=== PATIENT | female | born 1955 | race Caucasian/White ===

== ENCOUNTER 2018-07-16 17:45 | Emergency (ER) | payer MEDICAID ==
[~2018-07-16] VITALS: Ht 160 cm; Wt 68.0 kg
[2018-07-16 18:50] LABS: Basophils # (auto) 0.1 uL; Basophils % (auto) 2.6 % (0.0-2.0); Eosinophils # (auto) 0 uL; Eosinophils % (auto) 0.9 % (0.0-7.0); Hematocrit 41.1 % (36.0-46.0); Hemoglobin 13.9 g/dL (12.2-16.2); Lymphocytes # (auto) 1.5 uL; Lymphocytes % (auto) 33.1 % (10.0-50.0); Mean Corpuscular Hemoglobin 31.3 pg (28.0-32.0); Mean Corpuscular Hgb Conc. 33.8 g/dL (32.0-36.0); Mean Corpuscular Volume 92.7 fL (80.0-100.0); Monocytes # (auto) 0.3 uL; Monocytes % (auto) 6.7 % (0.0-12.0); Neutrophils # (auto) 2.5 uL; Neutrophils % (auto) 56.7 % (37.0-80.0); Nucleated Red Blood Cells % 0.1 %; Platelet Count (auto) 304 10^3/uL (140-450); Red Blood Cells 4.44 10^6/uL (4.0-5.20); Red Cell Distribution Width 16.7 % (11.8-14.3); White Blood Cell 4.4 10^3/uL (4.4-10.8)
[2018-07-16 18:54] LABS: Albumin 3.9 g/dL (3.4-5.0); Calcium 8.2 mg/dL (8.5-10.1); Potassium 3.8 mmol/L (3.5-5.1)
[2018-07-16 18:56] LABS: Salicylate < 1.7 mg/dL (2.8-20.0)
[2018-07-16 18:57] LABS: Acetaminophen < 2.0 ug/mL (10-30)
[2018-07-16 18:59] LABS: BUN/Creatinine Ratio 12.8; Bilirubin, Total 0.4 mg/dL (0.2-1.0); Total Protein 7.6 g/dL (6.4-8.2)
[2018-07-16] MEDS ORDERED: THIAMINE 100mg/ml INJ (200mg/2ml VIAL) IV ONE (19:15)
[2018-07-16] MEDS ORDERED: LORazepam 2MG/ML-1ML VIAL IV ONE (19:15)
[2018-07-16] MEDS ORDERED: LORazepam 2MG/ML-1ML VIAL ONE (19:16)
[2018-07-16] MEDS ORDERED: SODIUM CHLORIDE 0.9% 1,000 ML IV ONE (23:30)
[2018-07-17] MEDS ORDERED: SODIUM CHLORIDE 0.9% 3,000 ML IV ONE (02:00)
[2018-07-17] MEDS ORDERED: LORazepam 2MG/ML-1ML VIAL IV ONE ×3 (02:30→09:45)
[2018-07-17 07:57] LABS: Urine Bacteria MOD /hpf (None Seen); Urine Blood 1+ /uL (Negative); Urine Hyaline Cast FEW /lpf (0 - 2); Urine Mucus FEW (None Seen); Urine Specific Gravity 1.014 (1.001-1.035); Urine WBC 3 /hpf (0 - 5)
[2018-07-17 08:08] LABS: Amphetamine Screen, Urine NEGATIVE (NEGATIVE); Barbiturate Scree,Urine NEGATIVE (NEGATIVE); Benzodiazephine Screen, Urine NEGATIVE (NEGATIVE); Cannabinoid Screen, Urine NEGATIVE (NEGATIVE); Cocaine Screen, Urine NEGATIVE (NEGATIVE); Opiate Scree,Urine NEGATIVE (NEGATIVE); Phencyclidine Screen, Urine NEGATIVE (NEGATIVE)
[2018-07-17] MEDS ORDERED: chlordiazePOXIDE HCL 5 MG CAP PO ONE (09:45)
[2018-07-17] MEDS ORDERED: NAPROXEN 500 MG TAB PO ONE (15:00)
[2018-07-17] MEDS: LORazepam 0.5 MG TAB PO SCH ×2 (17:49→22:00)
[2018-07-17] MEDS ORDERED: PHENAZOPYRIDINE HCL 100 MG TAB PO ONE (18:45)
[2018-07-17] MEDS ORDERED: LORazepam 2MG/ML-1ML VIAL IM ONE (18:45)
[2018-07-17] MEDS ORDERED: ONDANSETRON ODT 4 MG TAB PO ONE (18:45)
[2018-07-18] MEDS: LORazepam 0.5 MG TAB PO SCH ×3 (02:00→16:45)
[2018-07-18] MEDS ORDERED: LORazepam 0.5 MG TAB PO ONE (10:00)
[2018-07-18] MEDS ORDERED: LORazepam 0.5 MG TAB PO PRN (10:00)
[2018-07-18] MEDS ORDERED: ACETAMINOPHEN 325 MG TAB PO PRN (12:30)
[2018-07-18] MEDS ORDERED: LOSARTAN POTASSIUM 50 MG TAB PO ONE (16:15)
[2018-07-18] MEDS ORDERED: HCTZ 25 MG TAB PO ONE (16:15)
[2018-07-18 17:05] VITALS: BP 164/93
[2018-07-18] MEDS ORDERED: ACETAMINOPHEN 500 MG TAB PO PRN (18:00)
== END 2018-07-18 17:17 | disposition short-term general hospital (02) ==
LOC: ER 17:58
DX: F29 Unspecified psychosis not due to a substance or known physiological condition (principal); G92 Toxic encephalopathy; F10.920 Alcohol use, unspecified with intoxication, uncomplicated; F41.9 Anxiety disorder, unspecified; I10 Essential (primary) hypertension; Y90.8 Blood alcohol level of 240 mg/100 ml or more
CPT/HCPCS: 36415; 71045; 80053; 80307; 80320; 80329; 81001; 85025; 93005; 94761; 96372; 96374; 96375; 96376; 99285; J2060; J3411; J7030; Q0162

== ENCOUNTER 2019-04-28 10:20 | Inpatient (IN) | payer MEDICAID, OTHER ==
[~2019-04-28] VITALS: Ht 154.9 cm; Wt 64.3 kg
[2019-04-28] MEDS ORDERED: SODIUM CHLORIDE 0.9% 1,000 ML IVB ONE (10:30)
[2019-04-28 11:16] LABS: Basophils # (auto) 0 10 ^3/uL (0-0.2); Basophils % (auto) 0.4 % (0.0-2.0); Eosinophils # (auto) 0 10 ^3/uL (0-0.8); Eosinophils % (auto) 0.1 % (0.0-7.0); Hematocrit 41.1 % (36.0-46.0); Lymphocytes # (auto) 1.1 10 ^3/uL (0.4-5.4); Mean Corpuscular Volume 88.1 fL (80.0-100.0); Monocytes # (auto) 0.5 10 ^3/uL (0-1.3); Monocytes % (auto) 4.1 % (0.0-12.0); Neutrophils # (auto) 9.3 10 ^3/uL (1.6-8.6); Neutrophils % (auto) 85.4 % (37.0-80.0); Platelet Count (auto) 370 10^3/uL (140-450); Red Blood Cells 4.67 10^6/uL (4.0-5.20); Red Cell Distribution Width 14.6 % (11.8-14.3); White Blood Cell 10.9 10^3/uL (4.4-10.8)
[2019-04-28] MEDS ORDERED: THIAMINE 100mg/ml INJ (200mg/2ml VIAL) IV ONE ×2 (11:30→16:15)
[2019-04-28 11:40] LABS: Albumin 3.9 g/dL (3.4-5.0); Calcium 8.6 mg/dL (8.5-10.1); Potassium 4.2 mmol/L (3.5-5.1)
[2019-04-28 11:44] LABS: BUN/Creatinine Ratio 20.4; Bilirubin, Total 1.1 mg/dL (0.2-1.0); Total Protein 7.6 g/dL (6.4-8.2)
[2019-04-28] MEDS ORDERED: chlordiazePOXIDE HCL 5 MG CAP PO ONE (12:00)
[2019-04-28 12:37] LABS: Urine WBC None Seen /hpf (0 - 5)
[2019-04-28 12:53] LABS: Urine Bacteria FEW /hpf (None Seen); Urine Blood 2+ /uL (Negative); Urine Hyaline Cast FEW /lpf (0 - 2); Urine Specific Gravity 1.011 (1.001-1.035)
[2019-04-28] MEDS: SODIUM CHLORIDE 0.9% 1,000 ML IV SCH ×3 (12:54→19:25)
[2019-04-28] MEDS ORDERED: PANTOPRAZOLE 40 MG/10 ML VIAL INJ IV ONE (13:00)
[2019-04-28 13:02] LABS: Amphetamine Screen, Urine NEGATIVE (NEGATIVE); Barbiturate Scree,Urine NEGATIVE (NEGATIVE); Benzodiazephine Screen, Urine NEGATIVE (NEGATIVE); Cannabinoid Screen, Urine NEGATIVE (NEGATIVE); Cocaine Screen, Urine NEGATIVE (NEGATIVE); Opiate Scree,Urine NEGATIVE (NEGATIVE); Phencyclidine Screen, Urine NEGATIVE (NEGATIVE)
[2019-04-28] MEDS ORDERED: LORazepam 2MG/ML-1ML VIAL IV ONE ×2 (13:30→16:45)
[2019-04-28] MEDS ORDERED: PANTOPRAZOLE 40mg/50ML NS AE 50 ML IV ONE (14:30)
[2019-04-28] MEDS ORDERED: NITROGLYCERIN 0.4 MG SL TAB SL PRN (16:15)
[2019-04-28] MEDS ORDERED: chlordiazePOXIDE HCL 25 MG CAP PO PRN (16:15)
[2019-04-28] MEDS ORDERED: PROMETHAZINE HCL 25 MG/ML 1ML IV PRN (16:15)
[2019-04-28] MEDS ORDERED: MORPHINE SULF INJ 2 MG/ML SYRINGE 1ML IV PRN (16:15)
[2019-04-28] MEDS ORDERED: LABETALOL HCL 5 MG/ML ML 20ML VIAL IV PRN (16:15)
--- NOTE | 2019-04-28 18:00 | NUR ---
Patient transferred to room 251A, via rney.
--- NOTE | 2019-04-28 18:20 | NUR ---
Opening Shift Note Assumed care of patient. No S/S of distress/SOB or pain. Instructed on POC and to call for assist PRN, will continue to monitor for changes Q1hr and PRN.
[2019-04-28 19:03] LABS: Hemoglobin 12.1 g/dL (12.2-16.2)
[2019-04-28 19:17] LABS: Amylase 35 U/L (25-115); Lipase 246 U/L (73-393)
[2019-04-28] MEDS: chlordiazePOXIDE HCL 25 MG CAP PO SCH ×2 (19:27→23:46)
--- NOTE | 2019-04-28 20:00 | NUR ---
Opening Shift Note Assumed care of patient, awake and alert. No S/S of distress/SOB or pain. Instructed on POC and to call for assist PRN, will continue to monitor for changes Q1hr and PRN.
[2019-04-28] MEDS: MORPHINE SULF INJ 2 MG/ML SYRINGE 1ML IV PRN (20:55)
--- NOTE | 2019-04-28 20:56 | NUR ---
PATIENT COMPLAINING OF PAIN 9/10 FROM BACK. PATIENT STATES THEY HAD A SPINAL FUSION AND HAS CHRONIC BACK PAIN. PATIENT GIVEN PAIN MEDICINE ACCORDING TO PAIN SCALE. PATIENT VERBALIZED UNDERSTANDING. WILL CONTINUE TO MONITOR.
--- NOTE | 2019-04-28 21:59 | NUR ---
HOSPITALIST PAGED PATIENT STATING SEVERE ANXIETY. PATIENT HAS LIBRIUM ORDERED BUT PATIENT STATES THAT LIBRIUM DOESN'T HELP. PATIENT IS ALSO NPO. PATIENT STATES THAT ATIVAN WAS GIVEN IN ER AND HELPED. WILL AWAIT CALL BACK OR ORDERS.
[2019-04-28 22:02] VITALS: BP 134/75
[2019-04-28] MEDS ORDERED: LORazepam 2MG/ML-1ML VIAL IV PRN (22:15)
[2019-04-29] MEDS: SODIUM CHLORIDE 0.9% 1,000 ML IV SCH ×7 (00:01→22:41)
[2019-04-29 01:31] LABS: Hematocrit 33.3 % (36.0-46.0); Hemoglobin 11.1 g/dL (12.2-16.2)
[2019-04-29 05:49] VITALS: BP 158/80
[2019-04-29] MEDS: chlordiazePOXIDE HCL 25 MG CAP PO SCH ×3 (05:54→17:39)
--- NOTE | 2019-04-29 06:02 | NUR ---
PATIENT STATED PAIN 10/10 WENT INTO PATIENT'S ROOM AND FOUND PATIENT SLEEPING SOUNDLY. PATIENT SHOWING NO FACIAL GRIMACING OR ANY OTHER SIGNS OF PAIN. WILL CONTINUE TO MONITOR.
[2019-04-29 06:28] LABS: Basophils # (auto) 0.1 10 ^3/uL (0-0.2); Basophils % (auto) 1.2 % (0.0-2.0); Eosinophils # (auto) 0.1 10 ^3/uL (0-0.8); Eosinophils % (auto) 0.8 % (0.0-7.0); Hematocrit 32.3 % (36.0-46.0); Hemoglobin 11.2 g/dL (12.2-16.2); Lymphocytes # (auto) 1.3 10 ^3/uL (0.4-5.4); Lymphocytes % (auto) 14.3 % (10.0-50.0); Mean Corpuscular Hemoglobin 30.7 pg (28.0-32.0); Mean Corpuscular Hgb Conc. 34.6 g/dL (32.0-36.0); Mean Corpuscular Volume 88.9 fL (80.0-100.0); Monocytes # (auto) 0.5 10 ^3/uL (0-1.3); Neutrophils # (auto) 6.8 10 ^3/uL (1.6-8.6); Neutrophils % (auto) 77.7 % (37.0-80.0); Platelet Count (auto) 205 10^3/uL (140-450); Red Blood Cells 3.63 10^6/uL (4.0-5.20); Red Cell Distribution Width 14.5 % (11.8-14.3); White Blood Cell 8.8 10^3/uL (4.4-10.8)
[2019-04-29 06:44] LABS: Albumin 3.1 g/dL (3.4-5.0)
[2019-04-29 06:47] LABS: BUN/Creatinine Ratio 19.6; Bilirubin, Total 1.3 mg/dL (0.2-1.0); Total Protein 6.1 g/dL (6.4-8.2)
[2019-04-29] MEDS ORDERED: LIDOCAINE VISCOUS 2% 15ML UD ONE (08:31)
[2019-04-29] MEDS ORDERED: SODIUM CHLORIDE LOCK 10 ML ONE (08:31)
[2019-04-29 09:00] VITALS: BP 151/66
[2019-04-29 09:30] LABS: INR 1.12 (0.9-1.15); Partial Thromboplastin Time 26.7 sec (23.64-32.05)
[2019-04-29] MEDS: THIAMINE 100mg/ml INJ (200mg/2ml VIAL) IV SCH (09:59)
[2019-04-29] MEDS: MORPHINE SULF INJ 2 MG/ML SYRINGE 1ML IV PRN ×2 (10:11→17:39)
[2019-04-29] MEDS ORDERED: PANTOPRAZOLE 40 MG/10 ML VIAL INJ IV SCH (11:15)
[2019-04-29] MEDS: MIDAZOLAM HCL 5 MG/ML-1ML VIAL ONE ×4 (11:47→14:51)
[2019-04-29 13:00] VITALS: BP 163/79
--- NOTE | 2019-04-29 13:45 | NUR ---
LOOSE BM PT HAD 2 EPISODES OF LOOSE BM. PT INFORMED THAT A STOOL SAMPLE WILL BE COLLECTED AND TO LET US KNOW WHEN SHE HAVE ANOTHER BM. PT VERBALIZED UNDERSTANDING.
--- NOTE | 2019-04-29 13:45 | NUR ---
SKIN ASSESSMENT PT STARTED COMPLAINING OF SORENESS AFTER BM AND WHEN WIPING. REDNESS NOTED BETWEEN THE BUTTOCKS. ZGUARD APPLIED. PT VERBALIZED IMMEDIATE RELIEF.
--- NOTE | 2019-04-29 14:30 | NUR ---
PT TAKEN TO OR VIA BED. AWAKE,AOX4. NO DISTRESS NOTED. VERBALIZED COMFORT.
[2019-04-29] MEDS: fentaNYL CITRATE 100 MCG/2 ML VL ONE ×2 (14:45→14:47)
[2019-04-29] MEDS: diphenhdrAMINE HCL 50 MG/1 ML VL ONE ×2 (14:50→14:51)
[2019-04-29 17:00] VITALS: BP 156/71
[2019-04-29] MEDS: SUCRALFATE 1 GM/10 ML ORAL SUSP PO SCH ×2 (17:38→22:39)
--- NOTE | 2019-04-29 19:33 | NUR ---
SOCIAL SERVICE CONSULT PUT IN PLACE. PER PATIENT, SHE'S RENTING A ROOM AND IS NOT SURE IF SHE STILL HAVE A HOME TO GO BACK TO OR IF SHE WILL BE SLEEPING IN HER CAR AFTER HER DISCHARGE.
--- NOTE | 2019-04-29 19:34 | NUR ---
CLOSING REPORT GIVEN TO BRADFORD RN. PT RESTING IN BED, WATCHING TV. VERBALIZED COMFORT. PT ABLE TO TOLERATE HER FULL LIQUID DIET AND DENIES VOMITING. PT HASN'T HAD ANY MORE EPISODE OF DIARRHEA. BRADFORD RN IS AWARE THAT SHE NEEDS TO COLLECT A STOOL SAMPLE IF PT HAVE ANOTHER DIARRHEA DURING HER SHIFT, TO TEST FOR CDIFF.
[2019-04-29 20:00] VITALS: BP 156/79
[2019-04-29] MEDS ORDERED: MORPHINE SULF INJ 2 MG/ML SYRINGE 1ML IV PRN ×2 (20:45)
[2019-04-29] MEDS: HYDROcodone-ACET 5/325MG TAB PO PRN (21:17)
[2019-04-29] MEDS: PANTOPRAZOLE 40 MG/10 ML VIAL INJ IV SCH (22:38)
[2019-04-29 22:53] VITALS: BP 156/79
[2019-04-30] MEDS: chlordiazePOXIDE HCL 25 MG CAP PO SCH ×4 (00:04→17:19)
[2019-04-30] MEDS: HYDROcodone-ACET 5/325MG TAB PO PRN ×5 (01:22→20:00)
[2019-04-30 05:45] VITALS: BP 146/72
[2019-04-30] MEDS: SUCRALFATE 1 GM/10 ML ORAL SUSP PO SCH ×4 (07:03→21:41)
[2019-04-30 07:15] LABS: Basophils # (auto) 0 10 ^3/uL (0-0.2); Basophils % (auto) 0.7 % (0.0-2.0); Eosinophils # (auto) 0.1 10 ^3/uL (0-0.8); Eosinophils % (auto) 1.9 % (0.0-7.0); Hematocrit 30.1 % (36.0-46.0); Hemoglobin 10.3 g/dL (12.2-16.2); Lymphocytes # (auto) 1.4 10 ^3/uL (0.4-5.4); Lymphocytes % (auto) 27.6 % (10.0-50.0); Mean Corpuscular Hemoglobin 30.6 pg (28.0-32.0); Mean Corpuscular Hgb Conc. 34.3 g/dL (32.0-36.0); Mean Corpuscular Volume 89.1 fL (80.0-100.0); Monocytes # (auto) 0.3 10 ^3/uL (0-1.3); Monocytes % (auto) 5.2 % (0.0-12.0); Neutrophils # (auto) 3.4 10 ^3/uL (1.6-8.6); Neutrophils % (auto) 64.6 % (37.0-80.0); Platelet Count (auto) 154 10^3/uL (140-450); Red Blood Cells 3.38 10^6/uL (4.0-5.20); Red Cell Distribution Width 14.7 % (11.8-14.3); White Blood Cell 5.2 10^3/uL (4.4-10.8)
--- NOTE | 2019-04-30 07:20 | NUR ---
Opening Shift Note Received report from Analisa LYON. Assumed care of patient, awake and alert. No S/S of distress/SOB or pain. NO episode of diarrhea. Instructed on POC and to call for assist PRN, will continue to monitor for changes Q1hr and PRN.
[2019-04-30 07:34] LABS: Calcium 7.9 mg/dL (8.5-10.1); Magnesium 1.9 mg/dL (1.6-2.6); Potassium 3.3 mmol/L (3.5-5.1)
[2019-04-30 07:36] LABS: BUN/Creatinine Ratio 16.5
[2019-04-30 08:00] VITALS: BP 148/79
--- NOTE | 2019-04-30 08:04 | NUR ---
PAIN REASSESSMENT PATIENT VERBALIZED REDUCED PAIN, SHOWS MORE ANXIETY THAN PAIN NOW. RECEIVED REPORT FROM NIGHT NURSE NOT TO GIVE ATIVAN. LIBRIUM IS SCHEDULED AND PRN, PATIENT VERBALIZED UNDERSTANDING.
[2019-04-30 09:00] VITALS: BP 148/79
--- NOTE | 2019-04-30 09:35 | NUR ---
Dr Osborn at bedside.
[2019-04-30] MEDS ORDERED: POTASSIUM CHL 20 Meq TABLET PO ONE (09:45)
--- NOTE | 2019-04-30 10:00 | NUR ---
RECEIVED VERBAL ORDER FROM DR LOUIS TO ADVANCE DIET OF THE PATIENT.
[2019-04-30] MEDS: THIAMINE 100mg/ml INJ (200mg/2ml VIAL) IV SCH (10:08)
[2019-04-30] MEDS: PANTOPRAZOLE 40 MG/10 ML VIAL INJ IV SCH ×2 (10:08→21:41)
[2019-04-30] MEDS: SODIUM CHLORIDE 0.9% 1,000 ML IV SCH ×2 (10:13→17:27)
--- NOTE | 2019-04-30 11:07 | NUR ---
PATIENT REQUESTING PAIN MEDICINE DUE TO HER SCIATICA. GAVE NORCO PO ORDERED BY MD. POSITIONED PATIENT COMFORTABLY.
--- NOTE | 2019-04-30 12:07 | NUR ---
PATIENT IS AT MRI.
--- NOTE | 2019-04-30 12:15 | NUR ---
PATIENT VERBALIZED PAIN IS STILL THE SAME BUT SHE CAN MANAGE.
[2019-04-30 13:00] VITALS: BP 153/77
--- NOTE | 2019-04-30 13:14 | NUR ---
ORDERED CDIFF PROTOCOL, INFORMED
--- NOTE | 2019-04-30 13:30 | NUR ---
STOOL SAMPLE SENT TO LAB FOR OCCULT BLOOD AND CDIFF WITH CDIFF FORM. COPY OF CDIFF FORM PLACED IN CHART.
--- NOTE | 2019-04-30 15:10 | NUR ---
PATIENT COMPLAINED OF BACK PAIN, GAVE NORCO 5/325MG PO ORDERED BY MD. POSITIONED COMFORTABLY.
--- NOTE | 2019-04-30 15:15 | NUR ---
PATIENT IS VERY ANXIOUS, TALKS TOO MUCH AND SAYING THAT SHE IS VERY UPSET BECAUSE WE DO NOT GIVE HER ANY MEDS FOR HER ANXIETY. INFORMED DR LOUIS, RECEIVED TELEPHONE ORDER, SEE ORDERS.
[2019-04-30] MEDS: ALPRAZolam 0.25 MG TAB PO PRN (16:04)
--- NOTE | 2019-04-30 16:10 | NUR ---
PATIENT REPORTED REDUCED PAIN, APPEARS MORE ANXIOUS THAN IN PAIN.
[2019-04-30 17:00] VITALS: BP 156/80
[2019-04-30] MEDS: MORPHINE SULF INJ 2 MG/ML SYRINGE 1ML IV PRN ×2 (17:27→21:42)
--- NOTE | 2019-04-30 17:28 | NUR ---
PATIENT IS COMPLAINING OF TOO MUCH PAIN IN HER BACK, GAVE MORPHINE 2MG IV PRN ORDERED BY MD. POSITIONED COMFORTABLY.
--- NOTE | 2019-04-30 17:57 | NUR ---
PAIN PATIENT VERBALIZED GREAT RELIEF FROM PAIN. WILL CONTINUE CARE.
--- NOTE | 2019-04-30 19:40 | NUR ---
Opening Shift Note Assumed care of patient, awake and alert. No S/S of distress/SOB. Fall and safety precautions in place. Call light within reach and able to use. Instructed on POC and to call for assist PRN, patient verbalized understanding and in agreement. Will continue to monitor for changes Q1hr and PRN.
--- NOTE | 2019-04-30 20:00 | NUR ---
PAIN ASSESSMENT PATIENT COMPLAINS OF 10/10 PAIN USING ADULT SCALE: ACUTE ABDOMINAL PAIN AND CHRONIC LOWER BACK PAIN. PATIENT REQUESTS NORCO AT THIS TIME (SEE EMAR FOR ADMINISTRATION). WILL CONTINUE TO MONITOR.
--- NOTE | 2019-04-30 21:40 | NUR ---
PAIN ASSESSMENT PATIENT COMPLAINS OF ACUTE ABDOMINAL PAIN AND CHRONIC LOWER BACK PAIN RATED 10/10 USING ADULT PAIN SCALE. PATIENT REQUESTS MORPHINE AT THIS TIME (SEE EMAR FOR ADMINISTRATION). BLOOD PRESSURE 151/72 MM HG; HEART RATE 78 BPM; RESPIRATIONS EVEN AND UNLABORED. WILL CONTINUE TO MONITOR.
[2019-04-30 22:00] VITALS: BP 151/72
--- NOTE | 2019-04-30 22:40 | NUR ---
PAIN REASSESSMENT PATIENT REPORTS PAIN 0/10 USING ADULT SCALE. PATIENT RESTING IN BED. BED LOCKED IN LOWEST POSITION WITH SIDE RAILS UP X2. WILL CONTINUE TO MONITOR.
--- NOTE | 2019-05-01 00:20 | NUR ---
PATIENT REQUESTS PRN PATIENT REQUESTS XANAX AT THIS TIME (SEE EMAR FOR ADMINISTRATION). PATIENT EDUCATED ON RISKS/BENEFITS/SIDE EFFECTS, PATIENT VERBALIZED UNDERSTANDING AND IN AGREEMENT FOR ADMINISTRATION. WILL CONTINUE TO MONITOR.
[2019-05-01] MEDS: chlordiazePOXIDE HCL 25 MG CAP PO SCH ×5 (00:35→23:37)
[2019-05-01] MEDS: ALPRAZolam 0.25 MG TAB PO PRN ×2 (00:35→16:55)
[2019-05-01] MEDS: SODIUM CHLORIDE 0.9% 1,000 ML IV SCH ×4 (00:35→23:37)
[2019-05-01 05:00] VITALS: BP 137/69
[2019-05-01] MEDS: MORPHINE SULF INJ 2 MG/ML SYRINGE 1ML IV PRN ×4 (05:39→18:43)
[2019-05-01] MEDS: SUCRALFATE 1 GM/10 ML ORAL SUSP PO SCH ×4 (06:02→22:04)
--- NOTE | 2019-05-01 07:20 | NUR ---
Opening Shift Note Received report from Yancy LYON. Assumed care of patient, awake and alert. No S/S of distress/SOB. Reported manageable pain. Instructed on POC and to call for assist PRN, will continue to monitor for changes Q1hr and PRN.
[2019-05-01 07:28] LABS: Basophils # (auto) 0 10 ^3/uL (0-0.2); Basophils % (auto) 1.1 % (0.0-2.0); Eosinophils # (auto) 0.2 10 ^3/uL (0-0.8); Eosinophils % (auto) 3.8 % (0.0-7.0); Hematocrit 28.8 % (36.0-46.0); Lymphocytes # (auto) 1.3 10 ^3/uL (0.4-5.4); Lymphocytes % (auto) 33.2 % (10.0-50.0); Mean Corpuscular Hemoglobin 30.8 pg (28.0-32.0); Mean Corpuscular Hgb Conc. 34.8 g/dL (32.0-36.0); Mean Corpuscular Volume 88.6 fL (80.0-100.0); Monocytes # (auto) 0.2 10 ^3/uL (0-1.3); Monocytes % (auto) 5.9 % (0.0-12.0); Neutrophils # (auto) 2.2 10 ^3/uL (1.6-8.6); Nucleated Red Blood Cells % 0.2 %; Platelet Count (auto) 135 10^3/uL (140-450); Red Blood Cells 3.25 10^6/uL (4.0-5.20); Red Cell Distribution Width 14.8 % (11.8-14.3)
[2019-05-01 07:52] LABS: Potassium 3.4 mmol/L (3.5-5.1)
[2019-05-01 07:57] LABS: Calcium 7.8 mg/dL (8.5-10.1); Magnesium 1.7 mg/dL (1.6-2.6)
[2019-05-01 08:00] VITALS: BP 155/75
[2019-05-01 09:00] VITALS: BP 155/75
--- NOTE | 2019-05-01 10:00 | NUR ---
NOTED PATIENT UNCONSCIOUSLY REMOVED IV WHEN SLEEPING.
--- NOTE | 2019-05-01 10:12 | NUR ---
IV insertion IV access obtained, via clean sterile technique by inserting gauge catheter 22 at left forearm after 1 attempt. IV secured properly. No trauma to site. Patient tolerated well.
[2019-05-01] MEDS: THIAMINE 100mg/ml INJ (200mg/2ml VIAL) IV SCH (10:15)
[2019-05-01] MEDS: PANTOPRAZOLE 40 MG/10 ML VIAL INJ IV SCH ×2 (10:15→22:03)
--- NOTE | 2019-05-01 10:46 | NUR ---
PAIN ASSESSMENT PATIENT REALLY SEEKING FOR NARCOTICS. SAID THAT PAIN IS BACKING UP AGAIN. NOTED LAUGHING AND WATCHING TV WHILE SAYING SHE IS IN PAIN 10/10.
--- NOTE | 2019-05-01 11:00 | NUR ---
PATIENT SEEN WALKING ASSISTED BY PHYSICAL THERAPISTS.
[2019-05-01] MEDS: HYDROcodone-ACET 5/325MG TAB PO PRN ×3 (11:31→19:49)
--- NOTE | 2019-05-01 11:31 | NUR ---
PATIENT COMPLAINING OF PAIN, GAVE NORCO 5/235MG PO PRN ORDERED BY MD. POSITIONED COMFORTABLY. WILL CONTINUE TO MONITOR.
--- NOTE | 2019-05-01 12:25 | NUR ---
INFORMED DR. LOUIS THAT PATIENT IS ALWAYS ASKING FOR BOTH PAIN RELIEVERS NOW: NORCO AND MORPHINE.
--- NOTE | 2019-05-01 12:31 | NUR ---
PATIENT REPORTED RELIEF FROM PAIN. POSITIONED COMFORTABLY. Dr Osborn at bedside.
[2019-05-01 12:52] VITALS: BP 147/76
--- NOTE | 2019-05-01 14:33 | NUR ---
PATIENT IS ASKING FOR MORPHINE FOR HER PAIN IN THE BACK. GAVE MEDICINE PRN ORDERED BY MD. POSITIONED COMFORTABLY.
--- NOTE | 2019-05-01 15:03 | NUR ---
PAIN ASSESSMENT PATIENT IS SLEEPING AT THIS TIME.
--- NOTE | 2019-05-01 15:33 | NUR ---
NORCO PATIENT JUST WOKE UP AND CALLED FOR PAIN RELIEVER, SAID SHE'S IN PAIN WITH SEVERITY SCALE OF 10/10. NORCO PO PRN GIVEN ORDERED BY .
--- NOTE | 2019-05-01 16:33 | NUR ---
PATIENT REPORTED REDUCED PAIN, SMILING AND SEEN WALKING AT [facility].
[2019-05-01 17:00] VITALS: BP 137/64
--- NOTE | 2019-05-01 17:20 | NUR ---
RECEIVED A CALL FROM [employer], PATIENT IS POSITIVE FOR CDIFF. INFORMED CN BRITTNI.
--- NOTE | 2019-05-01 17:25 | NUR ---
CALLED DR LOUIS REGARDING PATIENT POSITIVE FOR CDIFF, RECEIVED NEW TELEPHONE ORDERS, SEE ORDERS.
[2019-05-01] MEDS: VANCOMYCIN HCL 125MG/5ML ORAL SOL PO SCH ×2 (17:57→23:37)
--- NOTE | 2019-05-01 18:43 | NUR ---
PAIN PATIENT REQUESTED FOR PAIN RELIEVER SAYING THAT HER BACK PAIN DOES NOT GO AWAY. GAVE MORPHINE 2MG IV PRN ORDERED BY MD, POSITIONED COMFORTABLY.
[2019-05-01 22:00] VITALS: BP 141/74
--- NOTE | 2019-05-01 22:04 | NUR ---
CALLED ON-CALL DOCTOR FOR [facility] SPOKE TO DR HOFFMAN. UPDATED MD ON PATIENT STATUS AND COMPLAINT OF LACK OF SLEEP REQUESTING MEDICATION. BLOOD PRESSURE 141/74; HEART RATE 80BPM. NEW ORDER RECEIVED (SEE ORDERS), WILL CARRY OUT. WILL CONTINUE TO MONITOR.
[2019-05-01] MEDS ORDERED: ZOLPIDEM TARTRATE 5 MG TAB PO ONE (23:00)
[2019-05-02 05:00] VITALS: BP 166/82
[2019-05-02] MEDS: VANCOMYCIN HCL 125MG/5ML ORAL SOL PO SCH (05:32)
[2019-05-02] MEDS: chlordiazePOXIDE HCL 25 MG CAP PO SCH (05:33)
[2019-05-02] MEDS: HYDROcodone-ACET 5/325MG TAB PO PRN (05:33)
[2019-05-02] MEDS: SUCRALFATE 1 GM/10 ML ORAL SUSP PO SCH (06:11)
[2019-05-02] MEDS: SODIUM CHLORIDE 0.9% 1,000 ML IV SCH (07:02)
--- NOTE | 2019-05-02 07:30 | NUR ---
Opening Shift Note Assumed care of patient, resting with eyes closed, awoken by name. No S/S of distress/SOB, no pain noted or reported. Updated on POC and instructed to call for assistance as needed, patient verbalized understanding. Bed locked in lowest position, side rails up x3, call light within reach. Will continue to monitor for changes Q1hr and PRN.
[2019-05-02 09:00] VITALS: BP_SYST 138; BP_SYST 149; BP_DIAS 65; BP_DIAS 75
[2019-05-02] MEDS: THIAMINE 100mg/ml INJ (200mg/2ml VIAL) IV SCH (10:00)
[2019-05-02] MEDS: PANTOPRAZOLE 40 MG/10 ML VIAL INJ IV SCH ×2 (10:00→10:12)
--- NOTE | 2019-05-02 10:30 | NUR ---
Patient eloped. THERESA ORTIZ states they want to leave the hospital Against Medical Advice (AMA). Patient removed IV and tele monitor prior to leaving. Patient encouraged to stay for further treatment/stabilization. Irena DE LEON notified of patient's wishes. Patient advised of the risks and benefits of leaving AMA. Patient verbalized understanding. Patient encouraged to return to the ER if symptoms do not improve or worsen. Informed patient that would return with AMA form to sign, when primary RN returned patient ankushd, unable to obtain AMA signature. .
--- NOTE | 2019-05-02 12:29 | NUR ---
PER MD LOUIS, ATTEMPTED TO CONTACT PATIENT VIA TELEPHONE TO MAKE AWARE OF ISOLATION PRECAUTIONS. PHONE NUMBER IS NO LONGER IN SERVICE. ALSO THERE IS NO NEXT OF KIN CONTACT PHONE NUMBER AVAILABLE. PRESCRIPTION MEDS CALLED IN TO [facility].
--- NOTE | 2019-05-02 12:45 | NUR ---
assessment re: consult for living arrangement Patient left the hospital per RN without her paperwork and prior to being assessed. Addendum: 05/02/19 at 1556 by Giselle OBRIEN Amended: Links added.
== END 2019-05-02 10:30 | disposition left against medical advice (07) | DRG 241 ==
LOC: EDUNIT# 10:20 → ER 10:20 → TELE-EAST 10:21
PROVIDERS: ADMIT Internal Medicine; ATTEND Internal Medicine
PROC: 0DB88ZX Excision of Small Intestine, Via Natural or Artificial Opening Endoscopic, Diagnostic (ICD-10-PCS; 2019-04-29)
PROC: 0DB68ZX Excision of Stomach, Via Natural or Artificial Opening Endoscopic, Diagnostic (ICD-10-PCS; principal; 2019-04-29 14:38)
DX: K25.4 Chronic or unspecified gastric ulcer with hemorrhage (principal); E87.2 Acidosis; K76.6 Portal hypertension; A04.72 Enterocolitis due to Clostridium difficile, not specified as recurrent; F11.20 Opioid dependence, uncomplicated; E86.0 Dehydration; F10.920 Alcohol use, unspecified with intoxication, uncomplicated; N39.0 Urinary tract infection, site not specified; I10 Essential (primary) hypertension; M54.9 Dorsalgia, unspecified; G89.29 Other chronic pain; F41.9 Anxiety disorder, unspecified; K44.9 Diaphragmatic hernia without obstruction or gangrene; K31.9 Disease of stomach and duodenum, unspecified; Z98.1 Arthrodesis status; Z81.1 Family history of alcohol abuse and dependence; Z71.41 Alcohol abuse counseling and surveillance of alcoholic; Z79.899 Other long term (current) drug therapy
CPT/HCPCS: 36415; 43239; 71045; 80048; 80053; 80307; 80320; 81001; 82150; 83690; 83735; 85014; 85018; 85025; 85045; 85610; 85730; 87493; 96361; 96374; 96375; 97163; C9113; G0378; J2250

== ENCOUNTER → 2019-05-16 | Emergency (ER) | payer MEDICAID ==
[~2019-05-16] VITALS: Ht 157.5 cm; Wt 54.4 kg
[~2019-05-16] MED LIST: FOLIC ACID 1 MG, MULTIPLE VITAMIN 10 ML, MAGNESIUM SULF SDV 50% 8 MEQ, THIAMINE INJ 100... INJ SCH; LORazepam 2MG/ML-1ML VIAL IM ONE; LORazepam 2MG/ML-1ML VIAL IV ONE; POTASSIUM CHL 20 Meq TABLET PO ONE; SODIUM CHLORIDE 0.9% 1,000 ML IV ONE
[2019-05-16 16:11] LABS: Basophils # (auto) 0.1 10 ^3/uL (0-0.2); Basophils % (auto) 0.6 % (0.0-2.0); Eosinophils # (auto) 0 10 ^3/uL (0-0.8); Eosinophils % (auto) 0.2 % (0.0-7.0); Hematocrit 39.6 % (36.0-46.0); Hemoglobin 13.2 g/dL (12.2-16.2); Lymphocytes # (auto) 2.1 10 ^3/uL (0.4-5.4); Lymphocytes % (auto) 21.6 % (10.0-50.0); Mean Corpuscular Hemoglobin 29.7 pg (28.0-32.0); Mean Corpuscular Hgb Conc. 33.4 g/dL (32.0-36.0); Monocytes # (auto) 0.5 10 ^3/uL (0-1.3); Monocytes % (auto) 4.9 % (0.0-12.0); Neutrophils # (auto) 7.2 10 ^3/uL (1.6-8.6); Neutrophils % (auto) 72.7 % (37.0-80.0); Nucleated Red Blood Cells % 0.1 %; Platelet Count (auto) 394 10^3/uL (140-450); Red Blood Cells 4.45 10^6/uL (4.0-5.20); Red Cell Distribution Width 15.8 % (11.8-14.3); White Blood Cell 9.9 10^3/uL (4.4-10.8)
[2019-05-16 16:29] LABS: Albumin 3.9 g/dL (3.4-5.0); BUN/Creatinine Ratio 8.3; Calcium 8.4 mg/dL (8.5-10.1)
[2019-05-16 16:32] LABS: Bilirubin, Total 0.7 mg/dL (0.2-1.0); Total Protein 7.9 g/dL (6.4-8.2)
[2019-05-17 01:08] LABS: Urine Bacteria FEW /hpf (None Seen); Urine Blood Negative /uL (Negative); Urine Hyaline Cast MOD /lpf (0 - 2); Urine Mucus FEW (None Seen); Urine Specific Gravity 1.022 (1.001-1.035); Urine WBC 2 /hpf (0 - 5)
[2019-05-17 01:10] LABS: Amphetamine Screen, Urine NEGATIVE (NEGATIVE); Barbiturate Scree,Urine NEGATIVE (NEGATIVE); Benzodiazephine Screen, Urine POSITIVE (NEGATIVE); Cannabinoid Screen, Urine NEGATIVE (NEGATIVE); Cocaine Screen, Urine NEGATIVE (NEGATIVE); Phencyclidine Screen, Urine NEGATIVE (NEGATIVE)
[2019-05-17 01:18] LABS: Opiate Scree,Urine POSITIVE (NEGATIVE)
[2019-05-17 02:30] VITALS: BP 160/90
== END | disposition home or self-care (01) ==
LOC: ER 15:40
DX: F10.129 Alcohol abuse with intoxication, unspecified (principal); I10 Essential (primary) hypertension; Y90.9 Presence of alcohol in blood, level not specified
CPT/HCPCS: 36415; 80053; 80307; 80320; 81001; 85025; 96365; 96375; 99284; J2060; J3411; J3475; J7030

== ENCOUNTER → 2019-05-17 | Emergency (ER) | payer MEDICAID ==
[~2019-05-17] VITALS: Ht 160 cm; Wt 81.6 kg
[~2019-05-17] MED LIST changes: +CITA-30 PO; -FOLIC ACID 1 MG, MULTIPLE VITAMIN 10 ML, MAGNESIUM SULF SDV 50% 8 MEQ, THIAMINE INJ 100... INJ SCH; +HYDR-531 PO; +LISI-646 PO; +LORazepam 0.5 MG TAB PO ONE; -LORazepam 2MG/ML-1ML VIAL IM ONE; +ONDANSETRON HCL 4 MG/2 ML VIAL IV ONE; -POTASSIUM CHL 20 Meq TABLET PO ONE; +THIAMINE INJ 100 MG in SODIUM CHLORIDE 0.9% 1,000 ML IV ONE
[2019-05-17 21:21] LABS: Basophils # (auto) 0.1 10 ^3/uL (0-0.2); Basophils % (auto) 0.9 % (0.0-2.0); Eosinophils # (auto) 0 10 ^3/uL (0-0.8); Eosinophils % (auto) 0.5 % (0.0-7.0); Hematocrit 33.8 % (36.0-46.0); Hemoglobin 11.3 g/dL (12.2-16.2); Lymphocytes # (auto) 1.8 10 ^3/uL (0.4-5.4); Mean Corpuscular Hgb Conc. 33.5 g/dL (32.0-36.0); Mean Corpuscular Volume 89.5 fL (80.0-100.0); Monocytes # (auto) 0.6 10 ^3/uL (0-1.3); Monocytes % (auto) 7.4 % (0.0-12.0); Neutrophils % (auto) 67.2 % (37.0-80.0); Platelet Count (auto) 261 10^3/uL (140-450); Red Blood Cells 3.78 10^6/uL (4.0-5.20); Red Cell Distribution Width 15.8 % (11.8-14.3); White Blood Cell 7.4 10^3/uL (4.4-10.8)
[2019-05-17 21:55] LABS: Albumin 3.6 g/dL (3.4-5.0); Calcium 7.4 mg/dL (8.5-10.1); Potassium 3.4 mmol/L (3.5-5.1)
[2019-05-17 21:58] LABS: BUN/Creatinine Ratio 5.6; Bilirubin, Total 0.6 mg/dL (0.2-1.0); Total Protein 6.6 g/dL (6.4-8.2)
[2019-05-17 22:57] LABS: Amphetamine Screen, Urine NEGATIVE (NEGATIVE); Barbiturate Scree,Urine NEGATIVE (NEGATIVE); Benzodiazephine Screen, Urine POSITIVE (NEGATIVE); Cannabinoid Screen, Urine NEGATIVE (NEGATIVE); Cocaine Screen, Urine NEGATIVE (NEGATIVE); Opiate Scree,Urine NEGATIVE (NEGATIVE); Phencyclidine Screen, Urine NEGATIVE (NEGATIVE)
[2019-05-18] MEDS: THIAMINE 100mg/ml INJ (200mg/2ml VIAL) ONE ×2 (04:07→04:22)
[2019-05-18 06:45] VITALS: BP 155/75
== END | disposition home or self-care (01) ==
LOC: EDUNIT# 19:26 → EDBD 19:39 → ER 19:39
DX: S16.1XXA Strain of muscle, fascia and tendon at neck level, initial encounter (principal); F10.129 Alcohol abuse with intoxication, unspecified; I10 Essential (primary) hypertension; E11.9 Type 2 diabetes mellitus without complications; V89.2XXA Person injured in unspecified motor-vehicle accident, traffic, initial encounter; Y93.89 Activity, other specified; Y92.89 Other specified places as the place of occurrence of the external cause; Y99.8 Other external cause status; Y90.9 Presence of alcohol in blood, level not specified
CPT/HCPCS: 36415; 72125; 80053; 80307; 80320; 85025; 96365; 96375; 96376; 99284; J2060

== ENCOUNTER 2019-05-18 08:11 | Emergency (ER) | payer MEDICAID ==
[~2019-05-18] VITALS: Ht 152.4 cm; Wt 61.2 kg
[2019-05-18 08:25] VITALS: BP 195/87
[2019-05-18] MEDS ORDERED: LOPERAMIDE HCL 2 MG CAP PO ONE (08:45)
[2019-05-19] MEDS ORDERED: LISI-646 PO (10:02)
[2019-05-19] MEDS ORDERED: CITA-30 PO (10:02)
[2019-05-19] MEDS ORDERED: HYDR-531 PO (10:02)
== END 2019-05-18 09:03 | disposition home or self-care (01) ==
LOC: ER 08:11
DX: R19.7 Diarrhea, unspecified (principal); I10 Essential (primary) hypertension; F17.210 Nicotine dependence, cigarettes, uncomplicated; Z76.0 Encounter for issue of repeat prescription

== ENCOUNTER 2019-05-18 13:21 | Emergency (ER) | payer MEDICAID ==
[~2019-05-18] VITALS: Ht 157.5 cm; Wt 72.6 kg
[2019-05-18 13:30] VITALS: BP 121/72
[2019-05-18] MEDS ORDERED: SODIUM CHLORIDE 0.9% 1,000 ML IVB ONE (14:58)
[2019-05-19] MEDS ORDERED: CITA-30 PO (10:02)
[2019-05-19] MEDS ORDERED: HYDR-531 PO (10:02)
[2019-05-19] MEDS ORDERED: LISI-646 PO (10:02)
== END 2019-05-18 16:39 | disposition left against medical advice (07) ==
LOC: ER 13:21 → EDBD 13:21 → ER 16:39
DX: F10.10 Alcohol abuse, uncomplicated (principal); Z53.21 Procedure and treatment not carried out due to patient leaving prior to being seen by health care provider
CPT/HCPCS: 36415; 80320

== ENCOUNTER 2019-05-18 17:35 | Inpatient (IN) | payer MEDICAID ==
[~2019-05-18] VITALS: Ht 152.4 cm; Wt 72.6 kg
[2019-05-18] MEDS ORDERED: HALOPERIDOL LACTATE 5 MG/ML INJ VIAL ONE (17:38)
[2019-05-18] MEDS ORDERED: HALOPERIDOL LACTATE 5 MG/ML INJ VIAL IM ONE (17:45)
[2019-05-18] MEDS ORDERED: SODIUM CHLORIDE 0.9% 1,000 ML IV ONE (18:15)
[2019-05-18] MEDS ORDERED: THIAMINE INJ 100 MG in SODIUM CHLORIDE 0.9% 1,000 ML IV ONE (18:15)
[2019-05-18 18:55] LABS: Basophils # (auto) 0.1 10 ^3/uL (0-0.2); Basophils % (auto) 1.4 % (0.0-2.0); Eosinophils # (auto) 0.1 10 ^3/uL (0-0.8); Eosinophils % (auto) 1.2 % (0.0-7.0); Hematocrit 34.2 % (36.0-46.0); Hemoglobin 11.6 g/dL (12.2-16.2); Lymphocytes # (auto) 1.5 10 ^3/uL (0.4-5.4); Lymphocytes % (auto) 29.7 % (10.0-50.0); Mean Corpuscular Hemoglobin 30.1 pg (28.0-32.0); Mean Corpuscular Hgb Conc. 33.8 g/dL (32.0-36.0); Mean Corpuscular Volume 89.2 fL (80.0-100.0); Monocytes # (auto) 0.3 10 ^3/uL (0-1.3); Monocytes % (auto) 6.3 % (0.0-12.0); Neutrophils # (auto) 3.2 10 ^3/uL (1.6-8.6); Neutrophils % (auto) 61.4 % (37.0-80.0); Nucleated Red Blood Cells % 0.1 %; Platelet Count (auto) 220 10^3/uL (140-450); Red Blood Cells 3.84 10^6/uL (4.0-5.20); Red Cell Distribution Width 15.8 % (11.8-14.3); White Blood Cell 5.2 10^3/uL (4.4-10.8)
[2019-05-18] MEDS ORDERED: diphenhdrAMINE HCL 50 MG/1 ML VL IV ONE ×3 (19:00→21:45)
[2019-05-18 19:09] LABS: Albumin 3.3 g/dL (3.4-5.0); Calcium 7.8 mg/dL (8.5-10.1); Potassium 3.3 mmol/L (3.5-5.1)
[2019-05-18 19:12] LABS: Bilirubin, Total 0.6 mg/dL (0.2-1.0); Total Protein 6.6 g/dL (6.4-8.2)
[2019-05-18 19:22] LABS: Urine Bacteria NONE SEEN /hpf (None Seen); Urine Blood TRACE /uL (Negative); Urine Mucus FEW (None Seen); Urine Specific Gravity 1.004 (1.001-1.035); Urine WBC 1 /hpf (0 - 5)
[2019-05-18 19:38] LABS: Amphetamine Screen, Urine NEGATIVE (NEGATIVE); Barbiturate Scree,Urine NEGATIVE (NEGATIVE); Benzodiazephine Screen, Urine POSITIVE (NEGATIVE); Cannabinoid Screen, Urine NEGATIVE (NEGATIVE); Cocaine Screen, Urine NEGATIVE (NEGATIVE); Opiate Scree,Urine NEGATIVE (NEGATIVE); Phencyclidine Screen, Urine NEGATIVE (NEGATIVE)
[2019-05-18] MEDS ORDERED: PROMETHAZINE HCL 25 MG/ML 1ML IV ONE (21:45)
[2019-05-18] MEDS ORDERED: LORazepam 2MG/ML-1ML VIAL IV ONE (23:00)
[2019-05-19] MEDS ORDERED: SODIUM CHLORIDE 0.9% 1,000 ML IV ONE (00:45)
[2019-05-19] MEDS ORDERED: LORazepam 2MG/ML-1ML VIAL IV ONE (00:45)
[2019-05-19] MEDS ORDERED: chlordiazePOXIDE HCL 25 MG CAP PO PRN (06:45)
[2019-05-19] MEDS ORDERED: TEMAZEPAM 15 MG CAP PO PRN (06:45)
[2019-05-19] MEDS ORDERED: ONDANSETRON HCL 4 MG/2 ML VIAL IV PRN (06:45)
[2019-05-19 08:49] VITALS: BP 129/86
[2019-05-19] MEDS ORDERED: FAMOTIDINE 20 MG TAB PO SCH (10:00)
[2019-05-19] MEDS ORDERED: FOLIC ACID 1 MG TAB PO SCH (10:00)
[2019-05-19] MEDS ORDERED: LISINOPRIL 20 MG TAB PO SCH (10:00)
[2019-05-19] MEDS ORDERED: CITA-30 PO (10:02)
[2019-05-19] MEDS ORDERED: HYDR-531 PO (10:02)
[2019-05-19] MEDS ORDERED: LISI-646 PO (10:02)
[2019-05-19] MEDS ORDERED: FOLIC ACID 1 MG, MULTIPLE VITAMIN 10 ML, MAGNESIUM SULF SDV 50% 8 MEQ, THIAMINE INJ 100... INJ SCH ×5 (12:00)
[2019-05-19] MEDS ORDERED: chlordiazePOXIDE HCL 25 MG CAP PO SCH (16:00)
== END 2019-05-19 15:50 | disposition left against medical advice (07) | DRG 770 ==
LOC: ER 17:35 → TELE 17:36 → TELE-CENTR 05-19 10:52
PROVIDERS: ADMIT Nurse Practitioner; ATTEND Internal Medicine Nephrology
DX: F10.121 Alcohol abuse with intoxication delirium (principal); F11.20 Opioid dependence, uncomplicated; F13.20 Sedative, hypnotic or anxiolytic dependence, uncomplicated; R62.7 Adult failure to thrive; Z53.29 Procedure and treatment not carried out because of patient's decision for other reasons; Y90.9 Presence of alcohol in blood, level not specified; F41.9 Anxiety disorder, unspecified; Z68.31 Body mass index [BMI] 31.0-31.9, adult; E66.9 Obesity, unspecified
CPT/HCPCS: 36415; 70450; 80053; 80307; 80320; 80329; 81001; 83735; 85025; 96365; 96367; 96375; 96376; G0378; J2405

== ENCOUNTER → 2019-05-18 | Emergency (ER) | payer MEDICAID ==
[~2019-05-18] VITALS: Ht 160 cm; Wt 72.6 kg
[~2019-05-18] MED LIST changes: -LORazepam 0.5 MG TAB PO ONE; -LORazepam 2MG/ML-1ML VIAL IV ONE; -ONDANSETRON HCL 4 MG/2 ML VIAL IV ONE; -SODIUM CHLORIDE 0.9% 1,000 ML IV ONE; -THIAMINE INJ 100 MG in SODIUM CHLORIDE 0.9% 1,000 ML IV ONE
[2019-05-18 12:22] VITALS: BP 123/69
== END | disposition left against medical advice (07) ==
LOC: EDUNIT# 11:59 → EDBD 12:11 → ER 12:11
DX: F10.10 Alcohol abuse, uncomplicated (principal); Z53.21 Procedure and treatment not carried out due to patient leaving prior to being seen by health care provider

== ENCOUNTER → 2019-05-19 | Emergency (ER) | payer MEDICAID ==
[~2019-05-19] VITALS: Ht 154.9 cm; Wt 59.0 kg
[~2019-05-19] MED LIST changes: +DIPHENOXYLATE W/ATROPINE 2.5 MG TAB PO ONE; +HYDROcodone-ACET 10/325MG TAB PO ONE; +POTASSIUM EFFERVESENT TAB 25 MEQ PO ONE; +SODIUM CHLORIDE 0.9% 1,000 ML IV ONE; +THIAMINE 100mg/ml INJ (200mg/2ml VIAL) IV ONE; +cefTRIAXone SOD 1,000 MG VL IM ONE; +cloNIDine HCL 0.1 MG TAB PO ONE; +hydrALAZINE HCL 20 MG/ML VL IV ONE
[2019-05-19 22:25] LABS: Basophils # (auto) 0.1 10 ^3/uL (0-0.2); Basophils % (auto) 0.9 % (0.0-2.0); Eosinophils # (auto) 0.1 10 ^3/uL (0-0.8); Hematocrit 32.7 % (36.0-46.0); Hemoglobin 11.1 g/dL (12.2-16.2); Lymphocytes # (auto) 1.6 10 ^3/uL (0.4-5.4); Lymphocytes % (auto) 21.8 % (10.0-50.0); Mean Corpuscular Hemoglobin 30.4 pg (28.0-32.0); Mean Corpuscular Volume 89.5 fL (80.0-100.0); Monocytes # (auto) 0.4 10 ^3/uL (0-1.3); Monocytes % (auto) 5.7 % (0.0-12.0); Neutrophils # (auto) 5.3 10 ^3/uL (1.6-8.6); Neutrophils % (auto) 69.6 % (37.0-80.0); Platelet Count (auto) 206 10^3/uL (140-450); Red Blood Cells 3.65 10^6/uL (4.0-5.20); Red Cell Distribution Width 15.7 % (11.8-14.3); White Blood Cell 7.6 10^3/uL (4.4-10.8)
[2019-05-19 22:28] LABS: INR 1.11 (0.9-1.15); Partial Thromboplastin Time 26.4 sec (23.64-32.05)
[2019-05-19 22:33] LABS: Albumin 3.3 g/dL (3.4-5.0); Anion Gap 10 (5-15); Blood Urea Nitrogen 6 mg/dL (7-18); Calcium 7.9 mg/dL (8.5-10.1); Carbon Dioxide 24 mmol/L (21-32); Chloride 105 mmol/L (98-107); Glucose 79 mg/dL (74-106); Potassium 3.1 mmol/L (3.5-5.1); Sodium 139 mmol/L (136-145)
[2019-05-19 22:35] LABS: BUN/Creatinine Ratio 6.7; GFR African American 82 mL/min; GFR Non-African American 68 mL/min
[2019-05-19 22:48] LABS: Alanine Aminotransferase 46 U/L (13-56); Alkaline Phosphatase 124 U/L (45-117); Aspartate Aminotransferase 64 U/L (15-37); Total Protein 6.6 g/dL (6.4-8.2)
[2019-05-20 08:35] VITALS: BP 187/82
== END | disposition home or self-care (01) ==
LOC: EDUNIT# 21:13 → EDBD 21:23 → ER 21:23
DX: F10.129 Alcohol abuse with intoxication, unspecified (principal); R19.7 Diarrhea, unspecified; F17.210 Nicotine dependence, cigarettes, uncomplicated; I10 Essential (primary) hypertension; Y90.9 Presence of alcohol in blood, level not specified
CPT/HCPCS: 36415; 80053; 80320; 84484; 85025; 85610; 85730; 96361; 96374; 99284; J7030

== ENCOUNTER 2019-05-23 19:19 | Emergency (ER) | payer MEDICAID ==
[~2019-05-23 19:19] MED LIST changes: -LORazepam 0.5 MG TAB PO ONE; -LORazepam 2MG/ML-1ML VIAL IM ONE; -LORazepam 2MG/ML-1ML VIAL ONE; -SODIUM CHLORIDE 0.9% 1,000 ML IV ONE
== END 2019-05-23 19:25 | disposition left against medical advice (07) ==
LOC: ER 19:19 → EDBD 19:19 → ER 19:25
DX: F10.129 Alcohol abuse with intoxication, unspecified (principal); I10 Essential (primary) hypertension; F17.210 Nicotine dependence, cigarettes, uncomplicated; Y90.9 Presence of alcohol in blood, level not specified

== ENCOUNTER → 2019-05-23 | Emergency (ER) | payer MEDICAID ==
[~2019-05-23] VITALS: Ht 162.6 cm; Wt 59.0 kg
[~2019-05-23] MED LIST changes: -DIPHENOXYLATE W/ATROPINE 2.5 MG TAB PO ONE; -HYDROcodone-ACET 10/325MG TAB PO ONE; +LORazepam 0.5 MG TAB PO ONE; +LORazepam 2MG/ML-1ML VIAL IM ONE; +LORazepam 2MG/ML-1ML VIAL ONE; -POTASSIUM EFFERVESENT TAB 25 MEQ PO ONE; -THIAMINE 100mg/ml INJ (200mg/2ml VIAL) IV ONE; -cefTRIAXone SOD 1,000 MG VL IM ONE; -cloNIDine HCL 0.1 MG TAB PO ONE; -hydrALAZINE HCL 20 MG/ML VL IV ONE
[2019-05-23 12:31] VITALS: BP 129/56
[2019-05-23 12:49] LABS: Barbiturate Scree,Urine NEGATIVE (NEGATIVE); Benzodiazephine Screen, Urine POSITIVE (NEGATIVE); Cannabinoid Screen, Urine NEGATIVE (NEGATIVE); Cocaine Screen, Urine NEGATIVE (NEGATIVE); Opiate Scree,Urine NEGATIVE (NEGATIVE); Phencyclidine Screen, Urine NEGATIVE (NEGATIVE)
[2019-05-23 12:55] LABS: Amphetamine Screen, Urine NEGATIVE (NEGATIVE)
== END | disposition home or self-care (01) ==
LOC: ER 11:27
DX: F10.129 Alcohol abuse with intoxication, unspecified (principal); I10 Essential (primary) hypertension; F17.210 Nicotine dependence, cigarettes, uncomplicated; Z59.0 Homelessness; Y90.8 Blood alcohol level of 240 mg/100 ml or more
CPT/HCPCS: 36415; 80307; 80320; 96372; 99283; J2060; J7030

== ENCOUNTER 2020-03-23 10:52 | Emergency (ER) | payer MEDICAID ==
[~2020-03-23] VITALS: Ht 157.5 cm; Wt 68.0 kg
[~2020-03-23 10:52] MED LIST changes: -CITA-30 PO; +CITA20TA9 PO
[2020-03-23] MEDS ORDERED: SODIUM CHLORIDE 0.9% 1,000 ML IV ONE ×3 (11:00→18:45)
[2020-03-23] MEDS ORDERED: THIAMINE 100mg/ml INJ (200mg/2ml VIAL) IV ONE (11:00)
[2020-03-23 11:30] LABS: Basophils # (auto) 0.1 10 ^3/uL (0-0.2); Basophils % (auto) 0.6 % (0.0-2.0); Eosinophils # (auto) 0 10 ^3/uL (0-0.8); Hematocrit 37.5 % (36.0-46.0); Hemoglobin 13.1 g/dL (12.2-16.2); Lymphocytes # (auto) 1.7 10 ^3/uL (0.4-5.4); Lymphocytes % (auto) 11.4 % (10.0-50.0); Mean Corpuscular Hemoglobin 29.9 pg (28.0-32.0); Mean Corpuscular Volume 85.6 fL (80.0-100.0); Monocytes # (auto) 0.7 10 ^3/uL (0-1.3); Neutrophils # (auto) 12.2 10 ^3/uL (1.6-8.6); Platelet Count (auto) 346 10^3/uL (140-450); Red Blood Cells 4.38 10^6/uL (4.0-5.20); Red Cell Distribution Width 13.1 % (11.8-14.3); White Blood Cell 14.7 10^3/uL (4.4-10.8)
[2020-03-23 12:04] LABS: Chloride 95 mmol/L (98-107); Sodium 133 mmol/L (136-145)
[2020-03-23 12:25] LABS: Alanine Aminotransferase 47 U/L (13-56); Albumin 3.7 g/dL (3.4-5.0); Alkaline Phosphatase 112 U/L (45-117); Anion Gap 16 (5-15); Aspartate Aminotransferase 66 U/L (15-37); BUN/Creatinine Ratio 17.5; Bilirubin, Total 0.8 mg/dL (0.2-1.0); Blood Urea Nitrogen 20 mg/dL (7-18); Calcium 7.9 mg/dL (8.5-10.1); Carbon Dioxide 22 mmol/L (21-32); GFR African American 62 mL/min; GFR Non-African American 51 mL/min; Glucose 213 mg/dL (74-106); Total Protein 7.3 g/dL (6.4-8.2)
[2020-03-23 12:36] LABS: Potassium 2.8 mmol/L (3.5-5.1)
[2020-03-23] MEDS ORDERED: POTASSIUM EFFERVESENT TAB 25 MEQ PO ONE (12:45)
[2020-03-23] MEDS ORDERED: LORazepam 2MG/ML-1ML VIAL IV ONE (13:45)
[2020-03-23] MEDS ORDERED: PROCHLORPERAZINE EDISYLATE 5 MG/ML 2ML VIAL IV ONE (13:45)
[2020-03-23] MEDS ORDERED: diazePAM 5 MG TAB PO ONE (20:45)
[2020-03-24] MEDS ORDERED: SODIUM CHLORIDE 0.9% 1,000 ML IV ONE (02:15)
[2020-03-24] MEDS ORDERED: FAMOTIDINE (10MG/ML) 2ML VL IV ONE (02:15)
[2020-03-24] MEDS ORDERED: LABETALOL HCL 5 MG/ML 4ML SYRINGE IV ONE (02:15)
[2020-03-24 07:56] VITALS: BP 176/83
== END 2020-03-24 10:19 | disposition home or self-care (01) ==
LOC: ER 10:52 → EDBD 10:52 → ER 03-24 10:14
DX: R45.851 Suicidal ideations (principal); F10.920 Alcohol use, unspecified with intoxication, uncomplicated; F17.210 Nicotine dependence, cigarettes, uncomplicated; I10 Essential (primary) hypertension; Z79.899 Other long term (current) drug therapy
CPT/HCPCS: 36415; 71045; 80053; 80320; 80329; 82270; 84484; 85025; 96361; 96374; 96375; 99285; J0780; J2060; J3411; J3490; J7030

== ENCOUNTER 2020-03-30 14:16 | Emergency (ER) | payer MEDICAID ==
[~2020-03-30] VITALS: Ht 154.9 cm; Wt 63.5 kg
[~2020-03-30 14:16] MED LIST changes: -LISI-646 PO; +LISI20TA28 PO
[2020-03-30 15:15] LABS: Basophils # (auto) 0.1 10 ^3/uL (0-0.2); Basophils % (auto) 0.9 % (0.0-2.0); Eosinophils # (auto) 0.1 10 ^3/uL (0-0.8); Eosinophils % (auto) 1.2 % (0.0-7.0); Hematocrit 32.6 % (36.0-46.0); Hemoglobin 11.2 g/dL (12.2-16.2); Lymphocytes # (auto) 1.8 10 ^3/uL (0.4-5.4); Lymphocytes % (auto) 29.9 % (10.0-50.0); Mean Corpuscular Hemoglobin 29.8 pg (28.0-32.0); Mean Corpuscular Hgb Conc. 34.4 g/dL (32.0-36.0); Mean Corpuscular Volume 86.9 fL (80.0-100.0); Monocytes # (auto) 0.6 10 ^3/uL (0-1.3); Monocytes % (auto) 9.5 % (0.0-12.0); Neutrophils # (auto) 3.5 10 ^3/uL (1.6-8.6); Neutrophils % (auto) 58.5 % (37.0-80.0); Nucleated Red Blood Cells % 0.1 %; Red Blood Cells 3.76 10^6/uL (4.0-5.20); Red Cell Distribution Width 13.4 % (11.8-14.3)
[2020-03-30 15:33] LABS: Salicylate < 1.7 mg/dL (2.8-20.0)
[2020-03-30 15:34] LABS: Calcium 7.5 mg/dL (8.5-10.1)
[2020-03-30 15:36] LABS: Bilirubin, Total 0.4 mg/dL (0.2-1.0); Total Protein 6.5 g/dL (6.4-8.2)
[2020-03-30 15:39] LABS: Acetaminophen 6.2 ug/mL (10-30)
[2020-03-30 15:41] LABS: Potassium 2.5 mmol/L (3.5-5.1)
[2020-03-30] MEDS ORDERED: POTASSIUM CHL 20 Meq TABLET PO ONE ×2 (16:00→16:15)
[2020-03-30] MEDS ORDERED: ACETAMINOPHEN 325 MG TAB PO ONE (20:45)
[2020-03-30] MEDS ORDERED: THIAMINE HCL 100 MG TAB PO ONE (21:00)
[2020-03-30 22:24] LABS: Potassium 3.1 mmol/L (3.5-5.1)
[2020-03-31] MEDS ORDERED: LORazepam 2MG/ML-1ML VIAL IM ONE ×2 (07:45→13:45)
[2020-03-31 08:45] LABS: Amphetamine Screen, Urine NEGATIVE (NEGATIVE); Barbiturate Scree,Urine NEGATIVE (NEGATIVE); Benzodiazephine Screen, Urine POSITIVE (NEGATIVE); Cannabinoid Screen, Urine NEGATIVE (NEGATIVE); Cocaine Screen, Urine NEGATIVE (NEGATIVE); Opiate Scree,Urine NEGATIVE (NEGATIVE); Phencyclidine Screen, Urine NEGATIVE (NEGATIVE)
[2020-03-31] MEDS ORDERED: POTASSIUM CHL 20 Meq TABLET PO ONE (13:30)
[2020-03-31] MEDS: OXcarbazepine 300 MG TAB PO SCH (22:40)
[2020-04-01] MEDS: OXcarbazepine 300 MG TAB PO SCH ×2 (09:13→22:24)
[2020-04-01] MEDS: CITALOPRAM HYDROBR 20 MG TAB PO SCH (09:13)
[2020-04-01] MEDS: traZODone HCL 50 MG TAB PO PRN ×2 (13:51→20:12)
[2020-04-01] MEDS ORDERED: LORazepam 2MG/ML-1ML VIAL IM ONE (14:45)
[2020-04-01] MEDS ORDERED: ACETAMINOPHEN 500 MG TAB PO STA (20:30)
[2020-04-02] MEDS: CITALOPRAM HYDROBR 20 MG TAB PO SCH (09:27)
[2020-04-02] MEDS: OXcarbazepine 300 MG TAB PO SCH ×2 (09:27→22:00)
[2020-04-02] MEDS ORDERED: LORazepam 0.5 MG TAB PO ONE ×2 (11:30→23:45)
[2020-04-02] MEDS ORDERED: HYDROcodone-ACET 10/325MG TAB PO ONE (17:15)
[2020-04-02] MEDS: traZODone HCL 50 MG TAB PO PRN (22:35)
[2020-04-03 07:25] VITALS: BP 181/98
[2020-04-03] MEDS ORDERED: cloNIDine HCL 0.1 MG TAB PO ONE ×3 (08:45→10:00)
[2020-04-03] MEDS ORDERED: POTASSIUM EFFERVESENT TAB 25 MEQ PO ONE (09:15)
[2020-04-03] MEDS: OXcarbazepine 300 MG TAB PO SCH (09:51)
[2020-04-03] MEDS: CITALOPRAM HYDROBR 20 MG TAB PO SCH (09:51)
[2020-04-03] MEDS ORDERED: HYDROcodone-ACET 5/325MG TAB PO ONE ×2 (10:00→13:45)
== END 2020-04-03 21:17 | disposition home or self-care (01) ==
LOC: ER 14:16 → EDBD 14:16 → ER 04-03 20:55
DX: R45.851 Suicidal ideations (principal); F32.9 Major depressive disorder, single episode, unspecified; F41.9 Anxiety disorder, unspecified; I10 Essential (primary) hypertension; F17.210 Nicotine dependence, cigarettes, uncomplicated; Z20.822 Contact with and (suspected) exposure to COVID-19
CPT/HCPCS: 36415; 80053; 80307; 80320; 80329; 84132; 85025; 87426; 96372; 99285; C9803; J2060; U0003

== ENCOUNTER 2020-04-17 13:44 | Inpatient (IN) | payer MEDICAID, OTHER ==
[~2020-04-17] VITALS: Ht 165.1 cm; Wt 66.9 kg
[2020-04-17] MEDS ORDERED: THIAMINE 100mg/ml INJ (200mg/2ml VIAL) IV ONE (14:00)
[2020-04-17] MEDS ORDERED: SODIUM CHLORIDE 0.9% 1,000 ML IV ONE ×2 (14:00)
[2020-04-17 14:27] LABS: Basophils # (auto) 0.1 10 ^3/uL (0-0.2); Basophils % (auto) 1.1 % (0.0-2.0); Eosinophils # (auto) 0 10 ^3/uL (0-0.8); Eosinophils % (auto) 0.1 % (0.0-7.0); Lymphocytes % (auto) 12.8 % (10.0-50.0); Mean Corpuscular Hemoglobin 30.1 pg (28.0-32.0); Mean Corpuscular Hgb Conc. 33.4 g/dL (32.0-36.0); Mean Corpuscular Volume 90.4 fL (80.0-100.0); Monocytes # (auto) 0.1 10 ^3/uL (0-1.3); Monocytes % (auto) 1.1 % (0.0-12.0); Neutrophils # (auto) 6.9 10 ^3/uL (1.6-8.6); Neutrophils % (auto) 84.9 % (37.0-80.0); Red Blood Cells 4.32 10^6/uL (4.0-5.20); Red Cell Distribution Width 17.5 % (11.8-14.3); White Blood Cell 8.2 10^3/uL (4.4-10.8)
[2020-04-17 14:46] LABS: Albumin 3.7 g/dL (3.4-5.0); Anion Gap 10 (5-15); Blood Urea Nitrogen 6 mg/dL (7-18); Calcium 8.8 mg/dL (8.5-10.1); Carbon Dioxide 28 mmol/L (21-32); Chloride 108 mmol/L (98-107); Glucose 118 mg/dL (74-106); Potassium 3.3 mmol/L (3.5-5.1); Sodium 146 mmol/L (136-145)
[2020-04-17 14:55] LABS: Alanine Aminotransferase 124 U/L (13-56); Alkaline Phosphatase 157 U/L (45-117); Aspartate Aminotransferase 65 U/L (15-37); BUN/Creatinine Ratio 6.7; Bilirubin, Total 0.6 mg/dL (0.2-1.0); GFR African American 82 mL/min; GFR Non-African American 68 mL/min; Total Protein 7.6 g/dL (6.4-8.2)
[2020-04-17 17:46] LABS: Urine Bacteria NONE SEEN /hpf (None Seen); Urine Blood TRACE /uL (Negative); Urine Hyaline Cast FEW /lpf (0 - 2); Urine Mucus FEW (None Seen); Urine Specific Gravity 1.011 (1.001-1.035); Urine WBC 1 /hpf (0 - 5)
[2020-04-17 18:05] LABS: Amphetamine Screen, Urine NEGATIVE (NEGATIVE); Barbiturate Scree,Urine NEGATIVE (NEGATIVE); Benzodiazephine Screen, Urine POSITIVE (NEGATIVE); Cannabinoid Screen, Urine NEGATIVE (NEGATIVE); Cocaine Screen, Urine NEGATIVE (NEGATIVE); Opiate Scree,Urine NEGATIVE (NEGATIVE); Phencyclidine Screen, Urine NEGATIVE (NEGATIVE)
[2020-04-17] MEDS ORDERED: hydrALAZINE HCL 20 MG/ML VL IV PRN (18:15)
[2020-04-17] MEDS ORDERED: MORPHINE SULFATE INJECTION 2 MG/ML SYRG IV PRN (19:00)
[2020-04-17] MEDS ORDERED: NITROGLYCERIN 0.4 MG SL TAB SL PRN (19:00)
[2020-04-18] MEDS ORDERED: ONDANSETRON HCL 4 MG/2 ML VIAL IV PRN (03:45)
[2020-04-18] MEDS: LORazepam 2MG/ML-1ML VIAL IV PRN ×4 (04:05→20:58)
[2020-04-18 04:30] VITALS: BP 147/88
[2020-04-18 05:00] VITALS: BP 147/88
[2020-04-18 09:00] VITALS: BP 149/78
[2020-04-18] MEDS ORDERED: CITALOPRAM HYDROBR 20 MG TAB PO SCH (10:00)
[2020-04-18] MEDS ORDERED: THIAMINE 100mg/ml INJ (200mg/2ml VIAL) IV SCH (10:00)
[2020-04-18] MEDS ORDERED: LISINOPRIL 20 MG TAB PO SCH (10:00)
[2020-04-18] MEDS: FOLIC ACID 1 MG in D5W 5% 50 ML INJ SCH ×2 (10:23→10:27)
[2020-04-18 13:00] VITALS: BP 150/89
[2020-04-18 17:00] VITALS: BP 140/77
[2020-04-18 18:37] VITALS: BP 140/77
== END 2020-04-18 21:30 | disposition home or self-care (01) | DRG 816 ==
LOC: ER 13:44 → EDBD 13:44 → EDUNIT# 13:44 → OVERFLOW 18:52 → CENTRAL 04-18 04:08
PROVIDERS: ADMIT Internal Medicine; ATTEND Internal Medicine
DX: T51.0X1A Toxic effect of ethanol, accidental (unintentional), initial encounter (principal); G92 Toxic encephalopathy; E87.0 Hyperosmolality and hypernatremia; Z20.822 Contact with and (suspected) exposure to COVID-19; F10.220 Alcohol dependence with intoxication, uncomplicated; F32.9 Major depressive disorder, single episode, unspecified; F41.9 Anxiety disorder, unspecified; I10 Essential (primary) hypertension; Z59.0 Homelessness; Z79.899 Other long term (current) drug therapy; Y90.8 Blood alcohol level of 240 mg/100 ml or more
CPT/HCPCS: 36415; 70450; 71045; 80053; 80307; 80320; 81001; 84484; 85025; 87081; 87426; 93005; 96361; 96374; G0378; J2405; J7060

== ENCOUNTER 2020-04-20 15:11 | Emergency (ER) | payer MEDICAID ==
[~2020-04-20] VITALS: Ht 162.6 cm; Wt 77.1 kg
[~2020-04-20 15:11] MED LIST changes: +LISI-646 PO; -LISI20TA28 PO
[2020-04-20] MEDS ORDERED: SODIUM CHLORIDE 0.9% 1,000 ML IVB ONE (15:45)
[2020-04-20] MEDS ORDERED: SODIUM CHLORIDE 0.9% 1,000 ML IV ONE ×2 (16:00)
[2020-04-20] MEDS ORDERED: THIAMINE 100mg/ml INJ (200mg/2ml VIAL) IV ONE (16:00)
[2020-04-20 16:20] LABS: Basophils # (auto) 0.1 10 ^3/uL (0-0.2); Basophils % (auto) 1.4 % (0.0-2.0); Eosinophils # (auto) 0.1 10 ^3/uL (0-0.8); Hemoglobin 12.6 g/dL (12.2-16.2); Lymphocytes # (auto) 1.6 10 ^3/uL (0.4-5.4); Lymphocytes % (auto) 21.5 % (10.0-50.0); Mean Corpuscular Hgb Conc. 34.1 g/dL (32.0-36.0); Mean Corpuscular Volume 90.8 fL (80.0-100.0); Monocytes # (auto) 0.5 10 ^3/uL (0-1.3); Monocytes % (auto) 6.5 % (0.0-12.0); Neutrophils % (auto) 69.6 % (37.0-80.0); Nucleated Red Blood Cells % 0.1 %; Platelet Count (auto) 377 10^3/uL (140-450); Red Blood Cells 4.08 10^6/uL (4.0-5.20); Red Cell Distribution Width 17.5 % (11.8-14.3); White Blood Cell 7.2 10^3/uL (4.4-10.8)
[2020-04-20 16:38] LABS: Albumin 3.8 g/dL (3.4-5.0); Calcium 8.3 mg/dL (8.5-10.1)
[2020-04-20 16:42] LABS: Acetaminophen < 2.0 ug/mL (10-30); Salicylate < 1.7 mg/dL (2.8-20.0)
[2020-04-20 16:43] LABS: BUN/Creatinine Ratio 8.3; Bilirubin, Total 0.7 mg/dL (0.2-1.0); Total Protein 7.2 g/dL (6.4-8.2)
[2020-04-20 16:45] LABS: Potassium 2.8 mmol/L (3.5-5.1)
[2020-04-20] MEDS ORDERED: POTASSIUM CHL 20MEQ/100ML 100 ML IV SCH (17:00)
[2020-04-20] MEDS ORDERED: POTASSIUM CHL 20 Meq TABLET PO ONE (19:30)
[2020-04-21] MEDS ORDERED: SODIUM CHLORIDE 0.9% 1,000 ML IV ONE ×2 (00:45→09:45)
[2020-04-21] MEDS ORDERED: ONDANSETRON HCL 4 MG/2 ML VIAL IV ONE (06:30)
[2020-04-21] MEDS ORDERED: LORazepam 2MG/ML-1ML VIAL IV ONE (09:45)
[2020-04-21] MEDS ORDERED: POTASSIUM EFFERVESENT TAB 25 MEQ PO ONE (10:30)
[2020-04-21 11:00] VITALS: BP 169/72
== END 2020-04-21 12:35 | disposition home or self-care (01) ==
LOC: EDBD 15:11 → ER 15:11
DX: F10.129 Alcohol abuse with intoxication, unspecified (principal); E87.6 Hypokalemia; R74.8 Abnormal levels of other serum enzymes; Z20.822 Contact with and (suspected) exposure to COVID-19; Y90.8 Blood alcohol level of 240 mg/100 ml or more
CPT/HCPCS: 36415; 71045; 80053; 80320; 80329; 84132; 85025; 87426; 96361; 96374; 96375; 99285; C9803; J2060; J2405; J3411; J3480; J7030; U0003

== ENCOUNTER 2023-04-13 08:26 | Inpatient (IN) | payer MEDICARE, MEDICAID ==
[~2023-04-13] VITALS: Ht 152.4 cm; Wt 64.1 kg
[2023-04-13 03:53] VITALS: TEMP 98.2
[~2023-04-13 08:26] MED LIST changes: -LISI-646 PO; +LISI20TA56 PO
[2023-04-13 09:03] LABS: Basophils # (auto) 0 10 ^3/uL (0-0.2); Basophils % (auto) 0.8 % (0.0-2.0); Eosinophils # (auto) 0 10 ^3/uL (0-0.8); Hematocrit 36.8 % (36.0-46.0); Hemoglobin 11.9 g/dL (12.2-16.2); Lymphocytes # (auto) 0.7 10 ^3/uL (0.4-5.4); Lymphocytes % (auto) 14.1 % (10.0-50.0); Mean Corpuscular Hemoglobin 30.1 pg (28.0-32.0); Mean Corpuscular Hgb Conc. 32.4 g/dL (32.0-36.0); Monocytes # (auto) 0.3 10 ^3/uL (0-1.3); Monocytes % (auto) 6.2 % (0.0-12.0); Neutrophils # (auto) 4.1 10 ^3/uL (1.6-8.6); Neutrophils % (auto) 78.9 % (37.0-80.0); Red Blood Cells 3.95 10^6/uL (4.0-5.20); White Blood Cell 5.3 10^3/uL (4.4-10.8)
[2023-04-13 09:13] LABS: Chloride 99 mmol/L (98-107); Potassium 4.2 mmol/L (3.5-5.1); Sodium 137 mmol/L (136-145)
[2023-04-13 09:14] LABS: Anion Gap 17 (5-15); Carbon Dioxide 21 mmol/L (20-30)
[2023-04-13 09:15] LABS: Calcium 8.7 mg/dL (8.5-10.1)
[2023-04-13 09:19] LABS: BUN/Creatinine Ratio 13.6 (10.0-20.0); Blood Urea Nitrogen 12 mg/dL (9-23); Glucose 110 mg/dL (74-106)
[2023-04-13 09:21] LABS: Red Cell Distribution Width 20.3 % (11.8-14.3)
[2023-04-13 09:25] VITALS: PULSE 97; RESP 14; O2SAT 95
[2023-04-13] MEDS: SODIUM CHLORIDE 0.9% 500 ML IVB ONE (09:40)
[2023-04-13] MEDS: SODIUM CHLORIDE 0.9% 1,000 ML IV ONE (09:58)
[2023-04-13] MEDS: LORazepam 2MG/ML-1ML VIAL IV ONE (09:58)
[2023-04-13 10:06] LABS: Anisocytosis Slight; Platelet Estimate Decreased
[2023-04-13] MEDS ORDERED: ONDANSETRON HCL 4 MG/2 ML VIAL IV PRN (13:30)
[2023-04-13] MEDS ORDERED: NITROGLYCERIN 0.4 MG SL TAB SL PRN (13:30)
[2023-04-13] MEDS ORDERED: MORPHINE SULFATE INJ 2 MG/ml SYRG IV PRN (13:30)
[2023-04-13] MEDS ORDERED: HYDROcodone-ACET 5/325MG TAB PO PRN (13:30)
[2023-04-13] MEDS ORDERED: ACETAMINOPHEN 325 MG TAB PO PRN (13:30)
[2023-04-13] MEDS ORDERED: DOCUSATE SOD 100 MG CAP PO PRN (13:30)
[2023-04-13] MEDS ORDERED: ATOR20TA50 PO (13:35)
[2023-04-13] MEDS ORDERED: TRAZ-228 PO (13:35)
[2023-04-13] MEDS: PANTOPRAZOLE 40 MG/10 ML VIAL INJ IV ONE (14:45)
[2023-04-13] MEDS: cefTRIAXone 1GM/50ML D5W 50 ML IV ONE (14:45)
[2023-04-13 14:49] LABS: Bilirubin, Total 0.8 mg/dL (0.2-1.0)
[2023-04-13] MEDS: FOLIC ACID 1 MG, MULTIPLE VITAMIN 10 ML, MAGNESIUM SULF SDV 50% 8 MEQ, THIAMINE INJ 100... INJ SCH (15:39)
[2023-04-13 16:41] LABS: Urine Bacteria FEW /hpf (None Seen); Urine Blood 2+ /uL (Negative); Urine Clarity Clear (Clear); Urine Color Yellow (Yellow); Urine Hyaline Cast FEW /lpf (0 - 2); Urine Protein, UAD 2+ (Negative); Urine Specific Gravity 1.018 (1.001-1.035); Urine Urobilinogen Normal (Negative); Urine WBC 2 /hpf (0 - 5)
[2023-04-13] MEDS ORDERED: OXY5T GT (16:55)
[2023-04-13] MEDS ORDERED: oxyCODONE ER 10 MG TAB PO PRN (17:00)
[2023-04-13] MEDS: LORazepam 2MG/ML-1ML VIAL IV PRN (18:14)
[2023-04-13 19:40] VITALS: RESP 20; O2SAT 92
[2023-04-13 22:00] VITALS: PULSE 72
[2023-04-14] VITALS (11 sets, daily range): BP systolic 133–181; BP diastolic 60–87; PULSE 68–113; RESP 16–24; TEMP 36.8; O2SAT 94–99
[2023-04-14 07:18] LABS: Basophils # (auto) 0 10 ^3/uL (0-0.2); Eosinophils # (auto) 0 10 ^3/uL (0-0.8); Eosinophils % (auto) 0.7 % (0.0-7.0); Lymphocytes # (auto) 0.7 10 ^3/uL (0.4-5.4); Mean Corpuscular Hgb Conc. 32.4 g/dL (32.0-36.0); Neutrophils # (auto) 2.7 10 ^3/uL (1.6-8.6); Nucleated Red Blood Cells % 0.1 %
[2023-04-14 07:20] LABS: Basophils % (auto) 0.4 % (0.0-2.0); Hematocrit 31.2 % (36.0-46.0); Hemoglobin 10.1 g/dL (12.2-16.2); Lymphocytes % (auto) 18.8 % (10.0-50.0); Mean Corpuscular Hemoglobin 31.6 pg (28.0-32.0); Mean Corpuscular Volume 97.4 fL (80.0-100.0); Monocytes # (auto) 0.3 10 ^3/uL (0-1.3); Neutrophils % (auto) 71.1 % (37.0-80.0); White Blood Cell 3.9 10^3/uL (4.4-10.8)
[2023-04-14 07:38] LABS: Alanine Aminotransferase 73 U/L (7-40); Albumin 3.9 g/dL (3.2-4.8); Alkaline Phosphatase 85 U/L (46-116); Anion Gap 12 (5-15); Aspartate Aminotransferase 187 U/L (13-40); BUN/Creatinine Ratio 6.7 (10.0-20.0); Bilirubin, Total 1.3 mg/dL (0.2-1.0); Blood Urea Nitrogen 6 mg/dL (9-23); Calcium 8.4 mg/dL (8.5-10.1); Carbon Dioxide 22 mmol/L (20-30); Chloride 102 mmol/L (98-107); Glucose 100 mg/dL (74-106); Potassium 3.4 mmol/L (3.5-5.1); Sodium 136 mmol/L (136-145); Total Protein 6.1 g/dL (5.7-8.2)
[2023-04-14 07:57] LABS: Platelet Estimate Decreased
[2023-04-14] MEDS: PANTOPRAZOLE 40 MG/10 ML VIAL INJ IV SCH (09:43)
[2023-04-14] MEDS: cefTRIAXone 1GM/50ML D5W 50 ML IV SCH (09:43)
[2023-04-14] MEDS: LISINOPRIL 20 MG TAB PO SCH (09:44)
[2023-04-14] MEDS: ATORVASTATIN 20 MG TAB PO SCH (09:48)
[2023-04-14] MEDS ORDERED: CITALOPRAM HYDROBR 20 MG TAB PO SCH (10:00)
[2023-04-14] MEDS: POTASSIUM CHL 20 Meq TABLET PO ONE (12:33)
[2023-04-14] MEDS: SOD CHL 0.45% WITH 20MEQ KCL 1,000 ML IV SCH (13:30)
[2023-04-14] MEDS: MORPHINE SULFATE INJ 2 MG/ml SYRG IV ONE (14:28)
[2023-04-14] MEDS: LORazepam 0.5 MG TAB PO PRN (20:22)
[2023-04-14] MEDS: traZODone HCL 50 MG TAB PO SCH (21:54)
[2023-04-14] MEDS: LABETALOL HCL 5 MG/ML 4ML SYRINGE IV PRN (21:55)
[2023-04-14] MEDS: HYDROcodone-ACET 10/325MG TAB PO PRN (23:25)
[2023-04-15] VITALS (7 sets, daily range): BP systolic 94–162; BP diastolic 45–83; PULSE 63–95; RESP 16–18; TEMP 98.1–98.6; O2SAT 96–100
[2023-04-15 06:18] LABS: Basophils # (auto) 0 10 ^3/uL (0-0.2); Eosinophils # (auto) 0.1 10 ^3/uL (0-0.8); Monocytes # (auto) 0.2 10 ^3/uL (0-1.3); Monocytes % (auto) 7.5 % (0.0-12.0)
[2023-04-15 06:22] LABS: Basophils % (auto) 0.4 % (0.0-2.0); Eosinophils % (auto) 2.2 % (0.0-7.0); Hematocrit 28.1 % (36.0-46.0); Hemoglobin 9.6 g/dL (12.2-16.2); Lymphocytes # (auto) 0.7 10 ^3/uL (0.4-5.4); Lymphocytes % (auto) 24.4 % (10.0-50.0); Mean Corpuscular Hemoglobin 31.8 pg (28.0-32.0); Mean Corpuscular Volume 93.6 fL (80.0-100.0); Neutrophils % (auto) 65.5 % (37.0-80.0); Nucleated Red Blood Cells % 0.1 %; Red Blood Cells 3.01 10^6/uL (4.0-5.20); Red Cell Distribution Width 18.9 % (11.8-14.3)
[2023-04-15 06:31] LABS: Alanine Aminotransferase 64 U/L (7-40); Albumin 3.7 g/dL (3.2-4.8); Alkaline Phosphatase 79 U/L (46-116); Anion Gap 10 (5-15); Aspartate Aminotransferase 134 U/L (13-40); Calcium 8.4 mg/dL (8.5-10.1); Carbon Dioxide 24 mmol/L (20-30); Chloride 101 mmol/L (98-107); Glucose 117 mg/dL (74-106); Potassium 2.8 mmol/L (3.5-5.1); Sodium 135 mmol/L (136-145)
[2023-04-15 06:32] LABS: Bilirubin, Total 1.2 mg/dL (0.2-1.0); Phosphorus 1.7 mg/dL (2.4-5.1); Total Protein 5.8 g/dL (5.7-8.2)
[2023-04-15 06:41] LABS: Blood Urea Nitrogen < 5 mg/dL (9-23)
[2023-04-15 07:39] LABS: Magnesium 2.1 mg/dL (1.6-2.6)
[2023-04-15] MEDS: PANTOPRAZOLE 40 MG TAB PO SCH (10:39)
[2023-04-15] MEDS: POTASSIUM CHL 20 Meq TABLET PO ONE (10:39)
[2023-04-15] MEDS: oxyCODONE HCL 5MG TAB PO PRN (14:56)
[2023-04-15] MEDS: POTASSIUM PHOSPHATE 26.4 MEQ in SODIUM CHL 0.9% 100 ML IV ONE (14:57)
[2023-04-15] MEDS: LORazepam 0.5 MG TAB PO PRN (16:19)
[2023-04-15] MEDS: chlordiazePOXIDE HCL 25 MG CAP PO PRN (20:56)
[2023-04-15] MEDS: MUPIROCIN 2% OINT 15gm or 22gm FOR MRSA NARES TOP SCH (22:12)
[2023-04-16 05:00] VITALS: BP 171/70; PULSE 71; RESP 18; TEMP 98.1; O2SAT 100
[2023-04-16 06:32] LABS: Basophils # (auto) 0 10 ^3/uL (0-0.2); Basophils % (auto) 0.9 % (0.0-2.0); Eosinophils # (auto) 0.1 10 ^3/uL (0-0.8); Hematocrit 31.1 % (36.0-46.0); Hemoglobin 10.2 g/dL (12.2-16.2); Lymphocytes # (auto) 0.9 10 ^3/uL (0.4-5.4); Lymphocytes % (auto) 26.7 % (10.0-50.0); Mean Corpuscular Hemoglobin 30.7 pg (28.0-32.0); Mean Corpuscular Hgb Conc. 32.8 g/dL (32.0-36.0); Mean Corpuscular Volume 93.6 fL (80.0-100.0); Monocytes # (auto) 0.2 10 ^3/uL (0-1.3); Monocytes % (auto) 6.3 % (0.0-12.0); Neutrophils # (auto) 2.1 10 ^3/uL (1.6-8.6); Neutrophils % (auto) 62.1 % (37.0-80.0); Nucleated Red Blood Cells % 0.2 %; Red Blood Cells 3.32 10^6/uL (4.0-5.20); Red Cell Distribution Width 18.5 % (11.8-14.3); White Blood Cell 3.4 10^3/uL (4.4-10.8)
[2023-04-16 06:38] LABS: Chloride 103 mmol/L (98-107); Potassium 3.2 mmol/L (3.5-5.1); Sodium 135 mmol/L (136-145)
[2023-04-16 06:39] LABS: Anion Gap 7 (5-15); Calcium 8.4 mg/dL (8.7-10.4); Carbon Dioxide 25 mmol/L (20-30)
[2023-04-16 06:44] LABS: Glucose 138 mg/dL (74-106)
[2023-04-16 06:47] LABS: BUN/Creatinine Ratio 7.6 (10.0-20.0); Blood Urea Nitrogen < 5 mg/dL (9-23)
[2023-04-16 08:00] VITALS: PULSE 76
[2023-04-16 08:10] VITALS: BP 94/45; PULSE 74; PULSE 78; RESP 18; TEMP 98.3
[2023-04-16 09:00] VITALS: BP 164/94; PULSE 90; RESP 18; TEMP 98.1; O2SAT 99
[2023-04-16] MEDS ORDERED: MULT-351 PO (09:48)
[2023-04-16] MEDS ORDERED: CEFD300C2 PO (09:48)
[2023-04-16 12:45] VITALS: BP 148/91; PULSE 86; RESP 20; TEMP 36.7; O2SAT 95
[2023-04-16 13:00] VITALS: BP 138/80; PULSE 82; RESP 18; TEMP 98; O2SAT 95
[2023-04-16] MEDS: POTASSIUM CHL 20 Meq TABLET PO ONE (15:09)
== END 2023-04-16 16:20 | disposition home health service (06) | DRG 871 ==
LOC: EDBD 08:26 → ER 08:26 → TELE 13:27 → TELE-CENTR 04-14 03:26
PROVIDERS: ADMIT Nurse Practitioner Family; ATTEND Internal Medicine
DX: A41.9 Sepsis, unspecified organism (principal); G92.9 Unspecified toxic encephalopathy; J96.00 Acute respiratory failure, unspecified whether with hypoxia or hypercapnia; N39.0 Urinary tract infection, site not specified; F10.139 Alcohol abuse with withdrawal, unspecified; F10.129 Alcohol abuse with intoxication, unspecified; K80.20 Calculus of gallbladder without cholecystitis without obstruction; I10 Essential (primary) hypertension; F41.9 Anxiety disorder, unspecified; F32.A Depression, unspecified; E87.6 Hypokalemia; Y90.9 Presence of alcohol in blood, level not specified; E78.5 Hyperlipidemia, unspecified; E11.9 Type 2 diabetes mellitus without complications; K70.30 Alcoholic cirrhosis of liver without ascites; G89.29 Other chronic pain; M54.9 Dorsalgia, unspecified; Z79.891 Long term (current) use of opiate analgesic; Z79.899 Other long term (current) drug therapy
CPT/HCPCS: 36415; 74176; 76705; 80048; 80053; 80320; 81001; 82247; 83690; 83735; 84075; 84100; 84450; 84460; 85025; 87081; 87086; 96365; 96375; 97163; 99291; C9113; G0378; J3490